=== PATIENT | female | born 1990 | race African-American/Black ===

== ENCOUNTER 2019-02-08 18:44 | Emergency (ER) | payer SELFPAY ==
[~2019-02-08] VITALS: Ht 165.1 cm; Wt 54.4 kg
[2019-02-08 19:14] LABS: BASOPHILS # (AUTO) 0.1 /CMM (0.0-0.2); BASOPHILS % (AUTO) 0.7 % (0.0-2.0); EOSINOPHILS % (AUTO) 0.3 % (0.0-6.0); HEMATOCRIT 34 % (33-45); HEMOGLOBIN 10.8 g/dL (11.5-14.8); LYMPHOCYTES # (AUTO) 1.4 /CMM (0.8-4.8); LYMPHOCYTES % (AUTO) 16.1 % (20.0-44.0); MEAN CORPUSCULAR HGB CONC 32 g/dl (31.0-36.0); MEAN CORPUSCULAR VOLUME 69 fL (82-100); MONOCYTES # (AUTO) 0.5 /CMM (0.1-1.30); MONOCYTES % (AUTO) 5.8 % (2.0-12.0); NEUTROPHILS # (AUTO) 6.5 /CMM (1.8-8.9); NEUTROPHILS % (AUTO) 77.1 % (43.0-81.0); PLATELET COUNT (AUTO) 316 /CMM (150-450); RED BLOOD CELL COUNT(AUTO) 4.96 MIL/uL (4.0-5.2); WHITE BLOOD COUNT (AUTO) 8.4 K/uL (4.3-11.0)
[2019-02-08 19:22] LABS: CALCIUM, SERUM 9.3 mg/dL (8.5-10.1); CREATININE 0.9 mg/dL (0.6-1.3); POTASSIUM 3.9 mmol/L (3.5-5.1)
[2019-02-08 19:27] LABS: ALBUMIN 3.6 g/dL (3.4-5.0); BILIRUBIN,DIRECT 0.1 mg/dL (0.0-0.2); BILIRUBIN,TOTAL 0.5 mg/dL (0.2-1.0); TOTAL PROTEIN, SERUM 7.9 g/dL (6.4-8.2)
--- NOTE | 2019-02-09 00:05 | NUR ---
PT SLEEPING IN [place]. NO SIGNS OF DISTRESS NOTED. PT VITAL SIGNS STABLE. WILL CONT TO MONITOR PT.
[2019-02-09 03:43] VITALS: BP 93/57
--- NOTE | 2019-02-09 04:10 | NUR ---
PT PROVIDED WITH FOOD AND DRINK,. Patient given written and verbal discharge instructions. Patient verbalizes understanding of instructions. Patient is ambulatory with steady gait. Refuses offer of [facility] placement. Patient given list of available shelters in surrounding area.
== END 2019-02-09 04:55 | disposition home or self-care (01) ==
LOC: ER 18:48
DX: R56.9 Unspecified convulsions (principal)
CPT/HCPCS: 36415; 80048-TC; 80076-TC; 85025-TC